=== PATIENT | male | born 1995 | race Caucasian/White ===

== ENCOUNTER 2020-12-16 20:39 | Emergency (ER) | payer OTHER, SELFPAY ==
--- NOTE | 2020-12-16 | ECG_ITS ---
Test Reason : CHEST PAIN Blood Pressure : / mmHG Vent. Rate : 100 BPM Atrial Rate : 100 BPM P-R Int : 138 ms QRS Dur : 092 ms QT Int : 322 ms P-R-T Axes : 058 076 058 degrees QTc Int : 415 ms Normal sinus rhythm Normal ECG No previous ECGs available Referred By: Generic ED Physician Electronically Signed By:Jun Harper
--- NOTE | ~2020-12-16 | XR_ITS ---
EXAMINATION: XR CHEST CLINICAL INFORMATION: Productive cough COMPARISON: None TECHNIQUE: Frontal portable view of the chest was obtained. 9:20 PM FINDINGS: No significant abnormality is noted involving the heart, lungs, mediastinum, bony thorax or soft tissues. XR/XR chest 1V IMPRESSION: Unremarkable examination.
[2020-12-16 21:05] VITALS: BP 140/79; PULSE 98; RESP 20; TEMP 38.9; O2SAT 99; BMI 25.1
[2020-12-16] MEDS: Acetaminophen 325 MG TABLET 650 MG PO (21:20)
[2020-12-16 21:28] LABS: Basophils Percent Auto 0.3 % (0-2); Eosinophils Percent Auto 0.3 % (0-4); Hematocrit 41.3 % (42-52); Hemoglobin 14.4 g/dl (14.0-18.0); Imm Gran Abs Auto 0.03 X10*3/uL (0.00-0.03); Imm Gran Pct Auto 0.3 % (0.0-0.4); Lymphocytes Absolute Auto 0.8 X10*3/uL (1.2-4.9); Lymphocytes Percent Auto 6.9 % (20-40); MANUAL DIFF FLAG NO; Mean Corpuscular HGB Conc 34.9 g/dl (31.0-36.0); Mean Corpuscular Hemoglobin 31.6 pg (27.0-33.0); Mean Corpuscular Volume 90.8 fL (80-98); Mean Platelet Volume 9.3 fL (9.4-12.4); Monocytes Absolute Auto 0.8 X10*3/uL (0.1-1.2); Neutrophils Absolute Auto 9.2 X10*3/uL (2.0-8.3); Neutrophils Percent Auto 85.2 % (45-73); Platelet Count 207 X10*3/uL (160-400); Red Blood Count 4.55 X10*6/uL (4.60-5.80); Red Cell Distribution Width 11.5 % (11.0-16.0); White Blood Count 10.8 X10*3/uL (4.8-10.8)
[2020-12-16 21:37] LABS: COVID-19 Test Negative (Negative)
[2020-12-16 21:41] LABS: Lactic Acid 1.9 mmol/L (0.5-2.0)
--- NOTE | 2020-12-16 21:41 | ED.URI ---
HPI - URI/Sore Throat General Chief Complaint: Upper Respiratory Symptoms Stated Complaint: Chest pain/SOB Time Seen by Provider: 12/16/20 21:41 Source: patient Mode of arrival: ambulatory History of Present Illness HPI Narrative: 25-year-old male without significant past medical history presents with 2 days of productive cough of greenish phlegm that has worsened and now is associated chest pain that worsens with deep inspiration and coughing so hard that he has puked, states he has had some mild diarrhea but denies any urinary symptoms. 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 PMFSH Past Medical History Source: nursing notes reviewed Medical History Asthma Social History Social History Advance Directives: No Advance Directives Information Provided: Yes Physical Exam Vital Signs: Vital Signs: Last Vital Signs Temp 100.6 F H 12/16/20 22:37 Pulse 90 12/16/20 22:37 Resp 18 12/16/20 22:37 BP 133/58 L 12/16/20 22:37 Pulse Ox 97 12/16/20 22:37 Body Mass Index 25.1 VITAL SIGNS: Reviewed. GENERAL: Well developed, well nourished, in no acute distress. HEAD: Normocephalic/atraumatic EYES: PERRLA, EOMI, no conjunctival injection EARS: Ext canals without abnormality, TMs non-bulging and non-erythematous NOSE: Nares patent bilateral OROPHARYNX: no oral lesions noted, posterior pharynx erythematous with noted tonsillar enlargement/erythema NECK: Supple, no adenopathy LUNGS: Scattered rhonchi bilaterally, no expiratory wheeze noted, no tachypnea or increased work of breathing. SpO2<99> CARDIOVASCULAR: Regular rate and rhythm without noted murmurs ABDOMEN: Soft, non-tender, non-distended with bowel sounds. SKIN: Inspection of the skin reveals no rashes NEUROLOGIC: Alert and oriented x 4. Strength and sensation to light touch were grossly intact x 4. Course Course Course Narrative: 25-year-old male with history and clinical presentation consistent with likely pneumonia, possible strep pharyngitis, less likely COVID. Low clinical suspicion for PE or cardiac etiologies. Review of all investigations negative for acute findings, however clinically presentation is consistent with pneumonia and patient will be treated with initial antibiotics here in the emergency room and discharged on remaining course. Patient was informed of all results and findings and instructed to follow-up with primary care provider in the next 2-3 days for re-evaluation. MDM - URI/Sore Throat Lab Data Result diagrams: 12/16/20 21:20 12/16/20 21:20 Labs: Lab Results 12/16/20 12/16/20 12/16/20 Range/Units 20:50 21:19 21:20 WBC 10.8 (4.8-10.8) X10*3/uL RBC 4.55 L (4.60-5.80) X10*6/uL Hgb 14.4 (14.0-18.0) g/dl Hct 41.3 L (42-52) % MCV 90.8 (80-98) fL MCH 31.6 (27.0-33.0) pg MCHC 34.9 (31.0-36.0) g/dl RDW 11.5 (11.0-16.0) % Plt Count 207 (160-400) X10*3/uL MPV 9.3 L (9.4-12.4) fL Immature Gran % (Auto) 0.3 (0.0-0.4) % Neut % (Auto) 85.2 H (45-73) % Lymph % (Auto) 6.9 L (20-40) % [place] % (Auto) 7.0 (2-11) % Eos % (Auto) 0.3 (0-4) % Baso % (Auto) 0.3 (0-2) % Lymph # (Auto) 0.8 L (1.2-4.9) X10*3/uL [place] # (Auto) 0.8 (0.1-1.2) X10*3/uL Eos # (Auto) 0.0 (0.0-0.4) X10*3/uL Baso # (Auto) 0.0 (0.0-0.2) X10*3/uL Abs Immat Gran (auto) 0.03 (0.00-0.03) X10*3/uL Absolute Neuts (auto) 9.2 H (2.0-8.3) X10*3/uL Absolute Nucleated RBC 0.000 (0.0-0.012) X10*3/uL Nucleated RBC % (auto) 0.0 (0.0-0.2) /100WBC Sodium (135-145) mmol/L Potassium (3.3-5.1) mmol/L Chloride (96-108) mmol/L Carbon Dioxide (22-29) mmol/L Anion Gap (12-20) BUN (9-16) mg/dL Creatinine (0.5-1.4) mg/dL Estim Creat Clear Calc Estimated GFR Random Glucose (60-115) mg/dL Lactic Acid 1.9 (0.5-2.0) mmol/L Calcium (8.4-10.2) mg/dL COVID-19 (DELVIS) Negative (Negative) COVID-19 Clin Com See Note S. pyogenes GrpA ZAK (Negative) 12/16/20 12/16/20 Range/Units 21:20 22:19 WBC (4.8-10.8) X10*3/uL RBC (4.60-5.80) X10*6/uL Hgb (14.0-18.0) g/dl Hct (42-52) % MCV (80-98) fL MCH (27.0-33.0) pg MCHC (31.0-36.0) g/dl RDW (11.0-16.0) % Plt Count (160-400) X10*3/uL MPV (9.4-12.4) fL Immature Gran % (Auto) (0.0-0.4) % Neut % (Auto) (45-73) % Lymph % (Auto) (20-40) % [place] % (Auto) (2-11) % Eos % (Auto) (0-4) % Baso % (Auto) (0-2) % Lymph # (Auto) (1.2-4.9) X10*3/uL [place] # (Auto) (0.1-1.2) X10*3/uL Eos # (Auto) (0.0-0.4) X10*3/uL Baso # (Auto) (0.0-0.2) X10*3/uL Abs Immat Gran (auto) (0.00-0.03) X10*3/uL Absolute Neuts (auto) (2.0-8.3) X10*3/uL Absolute Nucleated RBC (0.0-0.012) X10*3/uL Nucleated RBC % (auto) (0.0-0.2) /100WBC Sodium 139 (135-145) mmol/L Potassium 3.6 (3.3-5.1) mmol/L Chloride 106 (96-108) mmol/L Carbon Dioxide 20 L (22-29) mmol/L Anion Gap 17 (12-20) BUN 9 (9-16) mg/dL Creatinine 1.21 (0.5-1.4) mg/dL Estim Creat Clear Calc 99.3 Estimated GFR > 60 Random Glucose 103 (60-115) mg/dL Lactic Acid (0.5-2.0) mmol/L Calcium 10.0 (8.4-10.2) mg/dL COVID-19 (DELVIS) (Negative) COVID-19 Clin Com S. pyogenes GrpA ZAK Negative (Negative) Discharge Plan Discharge Clinical Impression: Pneumonia Patient Disposition: Home, Self-Care Instructions: Pneumonia (ED), Doxycycline (By mouth) Additional Instructions: 1. Tylenol 1000 mg, orally, every 6 hours as needed for temperatures greater than 100.4 as well as body aches and pains. Do not exceed 4000 mg within 24 hours. 2. Ibuprofen 400 mg, orally, every 6 hours as needed for temperatures greater than 100.4 as well as body aches and pains. Recommend taking this in combination with the Tylenol for added symptom relief. 3. Please follow-up with your primary care provider next 2-3 days for re-evaluation and further outpatient management. Return to the ER for acute worsening of symptoms. Prescriptions: New doxycycline hyclate 100 mg capsule 100 mg PO BID 5 Days Qty: 10 RF: 0 Referrals: Geoff Whitaker MD [Primary Care Provider] - 2 days
[2020-12-16 22:00] LABS: Anion Gap 17 (12-20); Blood Urea Nitrogen 9 mg/dL (9-16); Carbon Dioxide 20 mmol/L (22-29); Chloride 106 mmol/L (96-108); Creatinine Clr Calc Pharmacy 99.3; Estimated Glomerular Filt Rate > 60; Glucose Random 103 mg/dL (60-115); Potassium 3.6 mmol/L (3.3-5.1); Sodium 139 mmol/L (135-145)
[2020-12-16 22:32] LABS: IDNOW Serial# 9DD0AD1C; Strep A Nucleic Acid Negative (Negative)
[2020-12-16 22:37] VITALS: BP 133/58; PULSE 90; RESP 18; TEMP 38.1; O2SAT 97
== END 2020-12-17 00:05 | disposition home or self-care (01) ==
PROVIDERS: Emergency Provider Student in an Organized Health Care Education/Training Program; PCP Internal Medicine
DX: J18.9 Pneumonia, unspecified organism (principal); J45.909 Unspecified asthma, uncomplicated; Z20.822 Contact with and (suspected) exposure to COVID-19
CPT/HCPCS: 36415; 71045; 80048; 83605; 85025; 87040; 87635; 87651; 93005; 99284

== ENCOUNTER 2022-10-21 23:13 | Emergency (ER) | payer OTHER, SELFPAY ==
--- NOTE | ~2022-10-21 | XR_ITS ---
EXAMINATION: XR CHEST CLINICAL INFORMATION: Hemoptysis COMPARISON: 12/16/2020 TECHNIQUE: 2 views of the chest were obtained. FINDINGS: Normal symmetric lung volumes. No parenchymal consolidation. No pleural effusion. No pneumothorax. Cardiomediastinal silhouette and pulmonary vascularity are within normal limits. No acute osseous abnormalities. XR/XR chest 2V IMPRESSION: Clear lungs
[2022-10-21 23:17] VITALS: BP 143/83; PULSE 105; RESP 19; TEMP 36.9; O2SAT 96; BMI 22.3
--- NOTE | 2022-10-22 00:20 | ED_ITS ---
HPI - General Adult General Chief complaint: General Medical Stated complaint: coughing up blood, fever Time Seen by Provider: 10/22/22 00:20 Source: patient Mode of arrival: ambulatory Limitations: no limitations History of Present Illness HPI narrative: Patient with history of asthma complaining of cough for last few days since yesterday coughing of blood phlegm with blood tinged. Also feel nasal congestion and blocked nose and sore throat with neck pain. Subjective fever patient's girlfriend also sick with same Related Data Previous Rx's Medication Instructions Recorded doxycycline hyclate 100 mg capsule 100 mg PO BID 5 days #10 caps 12/16/20 amoxicillin 875 mg-potassium 1 tab PO BID #20 tabs 10/22/22 clavulanate 125 mg tablet benzonatate 200 mg capsule 200 mg PO TID PRN cough #20 caps 10/22/22 ibuprofen 600 mg tablet 600 mg PO Q6H PRN fever or pain 10/22/22 #30 tabs Allergies Allergy/AdvReac Type Severity Reaction Status Date / Time procaine [From Novocain] AdvReac Numbness Verified 12/16/20 21:08 Review of Systems Review of Systems: Yes all other systems are reviewed and are negative PMFSH Past Medical History Medical History Asthma Social History Social History Alcohol intake: current Alcohol intake frequency: a few times a week Alcohol type: beer Smoked in Last 30 Days: No Use of substances other than those prescribed or required for medical reasons: Yes Substance Use Type: Marijuana Substance Use Frequency: Occasionally Advance Directives: No Advance Directives Information Provided: No Physical Exam ED Vital Signs: Vital Signs - 24 hr 10/21/22 23:17 10/22/22 00:27 10/22/22 02:18 Temperature 98.5 F 99.5 F 99.0 F Pulse Rate 105 H 86 89 Respiratory Rate 19 16 18 Blood Pressure 143/83 H 126/60 120/73 Pulse Oximetry 96 98 97 Oxygen Delivery Method Room Air Room Air Room Air BMI result Body Mass Index 22.3 Appearance: Alert. Oriented X3. No acute distress. ENT: Pharynx slightly erythematous Oral Mucosa moist Neck: Normal inspection. Neck supple. Upper cervical lymph node+ CVS: Normal heart rate and rhythm. Pulses normal. Respiratory: No respiratory distress. Equal air entry bilateral, no wheezing/rales/rhonchi Abdomen: Soft and nontender. Bowel sounds are present, Skin: Skin warm and dry. Normal skin color. Normal skin turgor. Neuro: Oriented X 3. No motor deficit. Medications Administered Discontinued Medications Generic Name Dose Route Start Last Admin Trade Name Freq PRN Reason Stop Dose Admin Amoxicillin/Clavulanate Potassium 875 mg 10/22/22 00:27 10/22/22 01:06 Amoxicillin/Potassium Clav 875 Mg Tablet PO 10/22/22 00:28 875 mg ONCE ONE Administration Benzonatate 200 mg 10/22/22 00:28 10/22/22 01:06 Benzonatate 100 Mg Capsule PO 10/22/22 00:29 200 mg ONCE ONE Administration Medical Decision Making Lab Data [facility] Lab Attestation statement: I reviewed the patient's lab results. 10/22/22 00:36 10/22/22 00:36 Labs: Lab Results 10/22/22 10/22/22 10/22/22 Range/Units 00:36 00:36 00:36 WBC 16.6 H (4.8-10.8) X10*3/uL RBC 4.44 L (4.60-5.80) X10*6/uL Hgb 14.1 (14.0-18.0) g/dl Hct 40.5 L (42.0-52.0) % MCV 91.2 (80.0-98.0) fL MCH 31.8 (27.0-33.0) pg MCHC 34.8 (31.0-36.0) g/dl RDW 11.8 (11.0-16.0) % Plt Count 236 (160-400) X10*3/uL MPV 9.1 L (9.4-12.4) fL Immature Gran % (Auto) 0.4 (0.0-0.4) % Neut % (Auto) 80.0 H (45-73) % Lymph % (Auto) 11.5 L (20-40) % [place] % (Auto) 7.8 (2-11) % Eos % (Auto) 0.1 (0-4) % Baso % (Auto) 0.2 (0-2) % Lymph # (Auto) 1.9 (1.2-4.9) X10*3/uL [place] # (Auto) 1.3 H (0.1-1.2) X10*3/uL Eos # (Auto) 0.0 (0.0-0.4) X10*3/uL Baso # (Auto) 0.0 (0.0-0.2) X10*3/uL Abs Immat Gran (auto) 0.06 H (0.00-0.03) X10*3/uL Absolute Neuts (auto) 13.3 H (2.0-8.3) x10*3/uL Absolute Nucleated RBC 0.000 (0.0-0.012) X10*3/uL Nucleated RBC % (auto) 0.0 (0.0-0.2) /100WBC Sodium 140 (135-145) mmol/L Potassium 3.7 (3.3-5.1) mmol/L Chloride 104 (96-108) mmol/L Carbon Dioxide 23 (22-29) mmol/L Anion Gap 17 (12-20) BUN 14 (9-16) mg/dL Creatinine 1.11 (0.5-1.4) mg/dL Estim Creat Clear Calc 102.6 Estimated GFR > 60 Random Glucose 100 (60-115) mg/dL Calcium 9.9 (8.4-10.2) mg/dL Total Bilirubin 0.4 (0.0-1.0) mg/dL AST 18 (5-37) U/L ALT 14 (0-40) U/L Alkaline Phosphatase 90 (39-117) U/L Total Protein 7.6 (6.5-8.0) g/dL Albumin 4.9 (3.5-5.0) g/dL S. pyogenes GrpA ZAK Negative (Negative) Discharge Plan Discharge Clinical Impression: Acute bacterial pharyngitis Patient Disposition: Home, Self-Care Instructions: Pharyngitis (ED) Additional Instructions: Take antibiotic as prescribed Drink plenty of fluids Tylenol/Motrin for pain Prescriptions: New benzonatate 200 mg capsule 200 mg PO TID PRN (Reason: cough) Qty: 20 0RF amoxicillin-pot clavulanate 875-125 mg tablet 1 tab PO BID Qty: 20 0RF ibuprofen 600 mg tablet 600 mg PO Q6H PRN (Reason: fever or pain) Qty: 30 0RF No Action doxycycline hyclate 100 mg capsule 100 mg PO BID 5 Days Qty: 10 0RF Interventions: ED Discharge Assessment Last Done: 10/22/22 02:19 Discharge Date/Time: 10/22/22 02:20
[2022-10-22 00:27] VITALS: BP 126/60; PULSE 86; RESP 16; TEMP 37.5; O2SAT 98
[2022-10-22 00:43] LABS: MANUAL DIFF FLAG NO
[2022-10-22 00:44] LABS: Basophils Percent Auto 0.2 % (0-2); Eosinophils Percent Auto 0.1 % (0-4); Hematocrit 40.5 % (42.0-52.0); Hemoglobin 14.1 g/dl (14.0-18.0); Imm Gran Abs Auto 0.06 X10*3/uL (0.00-0.03); Imm Gran Pct Auto 0.4 % (0.0-0.4); Lymphocytes Absolute Auto 1.9 X10*3/uL (1.2-4.9); Lymphocytes Percent Auto 11.5 % (20-40); Mean Corpuscular HGB Conc 34.8 g/dl (31.0-36.0); Mean Corpuscular Hemoglobin 31.8 pg (27.0-33.0); Mean Corpuscular Volume 91.2 fL (80.0-98.0); Mean Platelet Volume 9.1 fL (9.4-12.4); Monocytes Absolute Auto 1.3 X10*3/uL (0.1-1.2); Monocytes Percent Auto 7.8 % (2-11); Neutrophils Absolute Auto 13.3 x10*3/uL (2.0-8.3); Platelet Count 236 X10*3/uL (160-400); Red Blood Count 4.44 X10*6/uL (4.60-5.80); Red Cell Distribution Width 11.8 % (11.0-16.0); White Blood Count 16.6 X10*3/uL (4.8-10.8)
[2022-10-22 00:49] LABS: IDNOW Serial# 6674DD1D; Strep A Nucleic Acid Negative (Negative)
[2022-10-22 01:02] LABS: Alanine Aminotransferase 14 U/L (0-40); Albumin Level 4.9 g/dL (3.5-5.0); Alkaline Phosphatase 90 U/L (39-117); Anion Gap 17 (12-20); Aspartate Amino Transferase 18 U/L (5-37); Bilirubin Total 0.4 mg/dL (0.0-1.0); Blood Urea Nitrogen 14 mg/dL (9-16); Calcium 9.9 mg/dL (8.4-10.2); Carbon Dioxide 23 mmol/L (22-29); Chloride 104 mmol/L (96-108); Creatinine Clr Calc Pharmacy 102.6; Estimated Glomerular Filt Rate > 60; Glucose Random 100 mg/dL (60-115); Potassium 3.7 mmol/L (3.3-5.1); Sodium 140 mmol/L (135-145); Total Protein 7.6 g/dL (6.5-8.0)
[2022-10-22] MEDS: Amoxicillin/Potassium Clav 875 MG TABLET PO (01:06)
[2022-10-22] MEDS: Benzonatate 100 MG CAPSULE 200 MG PO (01:06)
[2022-10-22 02:18] VITALS: BP 120/73; PULSE 89; RESP 18; TEMP 37.2; O2SAT 97
== END 2022-10-22 02:20 | disposition home or self-care (01) ==
PROVIDERS: Emergency Provider Internal Medicine
DX: J02.9 Acute pharyngitis, unspecified (principal); R05.9 Cough, unspecified; Z79.899 Other long term (current) drug therapy
CPT/HCPCS: 36415; 71046; 80053; 85025; 87651; 99284

== ENCOUNTER 2023-01-18 07:53 | Outpatient (AMB) | payer OTHER, SELFPAY ==
--- NOTE | 2023-01-18 08:03 | A.OFFPC_ITS ---
Vital Signs 01/18/23 08:04 Height 5 ft 11 in Weight 192 lb BMI 26.8 BP 110/62 Blood Pressure Location Lt brachial Position Sitting Pulse 56 Pulse Source Pulse Oximeter Pulse Oximetry (%) 98 Oxygen Delivery Method Room Air Intake Visit Reasons: NPV-Discuss medical issues Allergies procaine [From Novocain] Adverse Reaction (Verified 01/18/23 08:11) Numbness Medication List - Last Reconciled 01/18/23 by Arturo Smith PA-C ibuprofen 600 mg PO Q6H PRN Tobacco use date assessed: 01/18/23 Dental Screening Dental Screen Date: 01/18/23 Did you have a dental visit in the last 12 months?: No Did you have a dental problem in the last 6 months where you did not have access to dental care?: No Was dental information given to patient?: Patient has dentist HPI NPV-Discuss medical issues HPI Details Patient is a 27-year-old male here today as a new patient . Pmhx of asthma. JAMIE, MDD. Has been treated for his mental health in the past though has never felt quite right on mental health medications except for hydroxyzine which has worked for his panic attacks. Concerns--> REports having having chest discomfort on a random occasion also report having bilateral ear itch when he has high anxiety. He denies any history of eczema Vaccines: reports being up to date with Tdap . [facility] Medical History Asthma Family History (Updated 01/18/23 @ 08:15 by Arturo Smith PA-C) Father CAD (coronary artery disease) Social History (Updated 01/18/23 @ 08:16 by Arturo Smith PA-C) Alcohol intake: current Alcohol intake frequency: a few times a week Alcohol type: beer Patient Tobacco Use Status: Never used Tobacco Substance Use Type: Marijuana Current occupational status: employed Current occupation: senior living associate Questionnaire PHQ-9 Over the last 2 weeks, how often have you been bothered by any of the following problems? 1. Little interest or pleasure in doing things: several days 2. Feeling down, depressed, or hopeless: more than half the days 3. Trouble falling or staying asleep, or sleeping too much: nearly every day 4. Feeling tired or having little energy: nearly every day 5. Poor appetite or overeating: several days 6. Feeling bad about yourself - or that you are a failure or have let yourself or your family down: more than half the days 7. Trouble concentrating on things, such as reading the newspaper or watching television: nearly every day 8. Moving or speaking so slowly that other people could have noticed. Or the opposite - being so fidgety or restless that you have been moving around a lot more than usual: nearly every day 9. Thoughts that you would be better off or of hurting yourself in some way: not at all Total score: 18 Depression Screening Interpretation: Positive 61608 - PHQ-9 Billing: Yes Source: Developed by Drs. Jarret Lorenzo, Ebony Steen, Joss Smith and colleagues, with an educational divina from [employer]. Thrive Questionnaire Date Thrive assessed: 01/18/23 I am a: Patient What is your living situation today?: I have a steady place to live Within the past 12 months, did the food you bought not last and you didn't have the money to get more?: Never true Within the past 12 months, did you worry whether your food would run out before you got money to buy more?: Never true Do you have trouble paying for medicines?: No Do you have trouble getting transportation to medical appointments?: No Do you have trouble paying your heating and electricity bill?: No Do you have trouble taking care of your child, family member or friend?: No Do you have trouble with day-to-day activities such as bathing, preparing meals, shopping, managing finances, etc.?: No Are you currently unemployed and looking for a job?: No Are you interested in more education?: No Currently or been in a relationship where the following occur: no concerns reported AUDIT C Alcohol Use Questionnaire (AUDIT-C) 1. How often do you have a drink containing alcohol?: 2-3 times a week 2. How many drinks containing alcohol do you have on a typical day when you are drinking?: 3 or 4 3. How often do you have six or more drinks on one occasion?: Less than monthly Total Score: 5 JAMIE-7 AMB Questionnaire JAMIE-7 Date JAMIE - 7 assessed: 01/18/23 Feeling nervous, anxious, or on edge: 3 = Nearly every day Not being able to stop or control worryin = Nearly every day Worrying too much about different things: 3 = Nearly every day Trouble relaxin = Nearly every day Being so restless that it is hard to sit still: 3 = Nearly every day Becoming easily annoyed or irritable: 1 = Several days Feeling afraid as if something awful might happen: 3 = Nearly every day Total JAMIE-7 score (0-4 normal; 5-9 mild; 10-14 moderate; 15-21 severe): 19 Source: Developed by Drs. Jarret Lorenzo, Ebony Steen, Joss Smith and colleagues, with an educational divina from [employer]. JAMIE-7 Assessment Billing JAMIE-7 Assessment Tool: JAMIE-7 Assessment 83571 Review of Systems Const Denies headache(s) Eyes Denies loss of vision ENT Denies vertigo, Denies dizziness, Denies headache(s) and Denies sore throat Card Denies chest pain, Denies leg edema and Denies lightheadedness Resp Denies cough, Denies hemoptysis and Denies wheezing GI Denies abdominal pain, Denies melena, Denies constipation, Denies diarrhea and Denies vomiting Denies dysuria, Denies urinary frequency and Denies urinary urgency Musc Denies arthralgias, Denies joint swelling, Denies numbness and Denies tingling Neuro Denies Abnormal speech present, Denies behavioral changes, Denies vertigo, Denies dizziness, Denies headache(s), Denies loss of vision, Denies memory loss, Denies numbness and Denies tingling Psych Denies anxiety, Denies behavioral changes, Denies depression, Denies memory loss and Denies panic attacks Azeem/Lymph Denies easy bleeding and Denies easy bruising Aller/Immun Denies wheezing Physical exam (Primary Care) Vital Signs: Last Vital Signs Pulse 56 01/18/23 08:04 BP 110/62 01/18/23 08:04 Pulse Ox 98 01/18/23 08:04 Oxygen Delivery Method Room Air 01/18/23 08:04 BMI result Body Mass Index 26.8 Tobacco/Smoking Status: Tobacco use Status Tobacco use date assessed 01/18/23 01/18/23 08:09 Patient Tobacco Use Status Never used Tobacco 08/17/23 08:16 PHQ-9: PHQ-9 Score PHQ-9: Total score 18 01/18/23 08:23 Depression Screening Interpretation: Positive Thrive Assessment: Date of Thrive Assessment Date Thrive assessed 01/18/23 01/18/23 08:09 Currently or been in a relationship where the following occur: no concerns reported Const General: healthy appearing, no acute distress, alert and awake Nutritional Appearance: well nourished Orientation/consciousness: oriented to person, oriented to place and oriented to time HENMT Ears: TM's normal bilaterally General nose exam: Normal nasal mucous membranes and turbinates present Eyes Conjunctivae: conjunctivae normal Sclerae: sclerae normal Pupils: Equal, round and reactive pupils present Neck Neck: Yes no lymphadenopathy and Yes no JVD Thyroid: Thyroid normal Carotids: no bruits Resp Effort & Inspection: normal respiratory effort and not tachypneic Auscultation: no crackles, no rales, no rhonchi and no wheezes Cardio Rate: regular rate Rhythm: regular rhythm Heart sounds: no murmurs and normal S1 and S2 GI Palpation (GI): Soft to palpation, nontender, no hepatomegaly and no splenomeg niru Auscultation: normal bowel sounds Skin General skin exam: no rashes or lesions noted and dry skin Neuro General: oriented to person, oriented to place and oriented to time Cranial nerves: Yes Equal, round and reactive pupils present Speech: No Abnormal speech present Gait exam (Neuro): Normal gait present Motor exam (neuro): no tremor noted Extrem Right upper extremity: full ROM Left upper extremity: full ROM Right lower extremity: full ROM; no edema Left lower extremity: full ROM; no edema Psych Mental Status: mental status grossly normal Speech and movement: Normal speech and movement present Affect: normal affect Attitude: cooperative Thought process: Normal thought process present Assessment and Plan Assessment & Plan (1) JAMIE (generalized anxiety disorder): Code(s): F41.1 - Generalized anxiety disorder Plan: Patient's JAMIE-7 score positive for moderate anxiety which has been existing condition for him. He reports he is on hydroxyzine 25 mg p.r.n. in the past with good effect on reducing his anxiety. he is interested in starting cognitive behavior therapy as well. (2) MDD (major depressive disorder), recurrent episode, moderate: Code(s): F33.1 - Major depressive disorder, recurrent, moderate Plan: Patient's PHQ-9 positive for moderate depression which has been existing condition for him. He is willing to start up with mental health therapy. Considering restarting SSRI therapy though like to hold off on this time. Does use hydroxyzine 25 mg p.r.n. for panic attack which has been effective for him. (3) Screening for diabetes mellitus (DM): Code(s): Z13.1 - Encounter for screening for diabetes mellitus (4) Ear itching: Code(s): L29.9 - Pruritus, unspecified Plan: Will supply patient with Sittig acid ear drops to help with his ear itch. Orders: Orders [facility] [place]. Panel Fast Today Z13.1 - Encounter for screening for diabetes mellitus Referrals Counseling Referral F41.1 - Generalized anxiety disorder Medications: New hydroxyzine HCl 25 mg PO ONCE 15 days PRN 15 tabs 3RF Panic attacks F41.1 - Generalized anxiety disorder acetic acid 2% apply to (cotton) wick; 3 drps otic (ear) left QID 30 days PRN 15 mL 0RF ear itch L29.9 - Pruritus, unspecified Coding Level of Care Code New Pt Level 4 (22627) Diagnoses JAMIE (generalized anxiety disorder) F41.1 MDD (major depressive disorder), recurrent episode, moderate F33.1 Screening for diabetes mellitus (DM) Z13.1 Ear itching L29.9 Additional Codes JAMIE-7 Assessment Billing - JAMIE-7 Assessment Tool: JAMIE-7 Assessment [id number] ([id number])
[2023-01-18 08:04] VITALS: BP 110/62; PULSE 56; O2SAT 98; BMI 26.8
== END 2023-01-18 08:33 | disposition home or self-care (01) ==
PROVIDERS: Visit Provider Physician Assistant
DX: F41.1 Generalized anxiety disorder (principal); F33.1 Major depressive disorder, recurrent, moderate; Z13.1 Encounter for screening for diabetes mellitus; L29.9 Pruritus, unspecified
CPT/HCPCS: 96127; 99204

== ENCOUNTER 2023-05-22 07:29 | Outpatient (REF) | payer OTHER, SELFPAY ==
[2023-05-22 09:05] LABS: Alanine Aminotransferase 14 U/L (0-40); Albumin Level 4.4 g/dL (3.5-5.0); Alkaline Phosphatase 75 U/L (39-117); Anion Gap 16 (12-20); Aspartate Amino Transferase 16 U/L (5-37); Bilirubin Total 0.2 mg/dL (0.0-1.0); Blood Urea Nitrogen 10 mg/dL (9-16); Carbon Dioxide 23 mmol/L (22-29); Chloride 108 mmol/L (96-108); Estimated Glomerular Filt Rate > 60; Glucose Fasting 86 mg/dL (60-99); Potassium 3.5 mmol/L (3.3-5.1); Sodium 143 mmol/L (135-145)
== END 2023-05-22 07:30 | disposition home or self-care (01) ==
LOC: HO.LAB 07:29
PROVIDERS: PCP Internal Medicine; Visit Provider Physician Assistant
DX: Z13.1 Encounter for screening for diabetes mellitus (principal)
CPT/HCPCS: 36415; 80053

== ENCOUNTER 2023-05-22 08:55 | Outpatient (AMB) | payer OTHER, SELFPAY ==
[2023-05-22 09:16] VITALS: BP 112/62; PULSE 68; RESP 17; BMI 27.7
--- NOTE | 2023-05-22 09:16 | A.OFFPC_ITS ---
Vital Signs 05/22/23 09:16 Height 5 ft 11 in Weight 198 lb 8 oz BMI 27.7 BP 112/62 Blood Pressure Location Lt brachial Position Sitting Respiration 17 Pulse 68 Pulse Source Palpation Intake Visit Reasons: Annual Exam Intake Note: Patient is here today for a physical. Systems Integration Advisor Required: No Accompanied by: Self / Same As Patient Allergies procaine [From Novocain] Adverse Reaction (Verified 05/22/23 09:31) Numbness Medication List - Last Reconciled 05/22/23 by Arturo Smith PA-C albuterol sulfate 90 mcg/actuation (Ventolin HFA) 2 puffs inhalation Q4-6H PRN hydroxyzine HCl 25 mg PO ONCE PRN 15 days Tobacco use date assessed: 01/18/23 Dental Screening Dental Screen Date: 05/22/23 Did you have a dental visit in the last 12 months?: No Did you have a dental problem in the last 6 months where you did not have access to dental care?: No Was dental information given to patient?: Patient has dentist HPI Annual Exam HPI Details Patient is a 27 year male here today for annual physical. Patient has a past medical history significant for generalized anxiety disorder and major depressive disorder, asthma. concerns--->having lower back pain for many years now. Does report his back pain gets worse with long periods of standing. He is interested in getting his lower lumbar spine evaluated. .. : Anxiety: Has been fairly well controlled with p.r.n. use of hydroxyzine for panic attacks. .. Asthma: Has been well controlled with only p.r.n. use of albuterol inhaler. Does report recently have a viral illness that bothers his asthma a bit. Does use albuterol inhaler which works well for him. Vaccines: Up-to-date with flu vaccine, COVID vaccines, Had Tdap in 2017 Recent Labs reviewed patient in all within the normal range Laboratory Tests 10/22/22 00:36 WBC 16.6 H RBC 4.44 L [facility] Medical History Asthma Family History Father CAD (coronary artery disease) Social History (Updated 05/22/23 @ 09:36 by Arturo Smith PA-C) Housing: Condominium Alcohol intake: current Alcohol intake frequency: a few times a week Alcohol type: beer Patient Tobacco Use Status: Never used Tobacco e-Cigarette/Vaping Use: Former Use Date or number of years quit: 4 year ago Substance Use Type: Marijuana service: No Current occupational status: employed Current occupation: [employer] associate Cognitive needs: No Hearing needs: No Vision needs: No Questionnaire Thrive Questionnaire Date Thrive assessed: 01/18/23 JAMIE-7 AMB Questionnaire JAMIE-7 Date JAMIE - 7 assessed: 01/18/23 Source: Developed by Drs. Jarret Lorenzo, Ebony Steen, Joss Smith and colleagues, with an educational divina from [employer]. ACT Questionnaire In the past 4 weeks, how much of the time did your asthma keep you from getting as much done at work, school or at home?: None of the time During the past 4 weeks, how often have you had shortness of breath?: 1-2 times a week During the past 4 weeks, how often did your asthma symptoms wake you up at night or earlier than usual in the morning?: Once or twice per week During the past 4 weeks, how often have you had to use your rescue inhaler or nebulizer medication?: Not at all How would you rate your asthma control during the past 4 weeks?: Completely controlled ACT Interpretation: Negative Score: 23 Review of Systems Const Denies body aches, Denies chills, Denies excessive sweating, Denies fatigue, Denies fever(s) and Denies headache(s) Eyes Denies blurry vision ENT Denies dysphagia, Denies vertigo, Denies dizziness, Denies headache(s), Denies hearing loss and Denies tinnitus Card Denies chest pain, Denies chest pain with activity, Denies syncope, Denies irregular heart rhythm and Denies dyspnea Resp Denies chest congestion, Denies cough, Denies hemoptysis, Denies dyspnea and Denies wheezing GI Denies abdominal pain, Denies melena, Denies hematochezia, Denies coffee ground emesis, Denies dysphagia, Denies diarrhea, Denies nausea and Denies vomiting Denies difficulty urinating, Denies dysuria, Denies urinary frequency, Denies urinary hesitancy and Denies urinary urgency Musc Denies arthralgias, Denies limited range of motion, Denies muscle cramps and Denies muscle weakness Skin/Breast Denies rash and Denies skin ulcer Neuro Denies Abnormal speech present, Denies confusion, Denies vertigo, Denies dizziness, Denies syncope, Denies headache(s), Denies memory loss and Denies seizure-like activity Psych Denies anxiety, Denies confusion, Denies depression, Denies memory loss, Denies panic attacks and Denies paranoia Endo Denies excessive sweating, Denies fatigue, Denies flushing, Denies polydipsia and Denies polyuria Aller/Immun Denies wheezing Physical exam (Primary Care) Vital Signs: Last Vital Signs Pulse 68 05/22/23 09:16 Resp 17 05/22/23 09:16 BP 112/62 05/22/23 09:16 BMI result Body Mass Index 27.7 Tobacco/Smoking Status: Tobacco use Status Tobacco use date assessed 01/18/23 05/22/23 09:17 Patient Tobacco Use Status Never used Tobacco 05/22/23 09:17 e-Cigarette/Vaping Use Former Use 05/22/23 09:28 Thrive Assessment: Date of Thrive Assessment Date Thrive assessed 01/18/23 05/22/23 09:17 Const General: cooperative, comfortable, no acute distress, alert and awake; No confus ion Orientation/consciousness: oriented to person, oriented to place, patient oriented x3 and No confusion HENMT Head: Yes normocephalic Ears: external ears normal and TM's normal bilaterally Face and sinus: No sinus tenderness Mouth: Normal oral and palatal mucosa present and tongue normal Teeth and gingiva: dentition normal and gingiva normal Throat: Yes posterior oropharynx normal, Yes tonsils normal and Yes uvula midline Eyes Conjunctivae: conjunctivae normal Sclerae: sclerae normal Pupils: Equal, round and reactive pupils present EOM: EOMs intact bilaterally Direct Ophthalmoscopy: No no photophobia Neck Neck: Yes no lymphadenopathy, No tender and Yes no JVD Thyroid: Thyroid normal Carotids: no bruits Chest Chest palpation & inspection: no tenderness Resp Effort & Inspection: normal respiratory effort, no audible wheezes, not labored and no stridor Auscultation: no crackles, no rales, no rhonchi and no wheezes Cardio Jugular venous distension: no JVD Rate: regular rate, not bradycardic and not tachycardic Rhythm: regular rhythm Bruits: no carotid bruits Peripheral pulses: Peripheral pulses 2+ throughout GI Inspection: Yes normal to inspection, No abdominal wall ecchymosis and No visible herniation Palpation (GI): Soft to palpation, nontender, no guarding, not rigid and No hepatosplenomegaly present Auscultation: normoactive bowel sounds General: Yes no CVA tenderness Back/Spine/Pelvis Back: no CVA tenderness and No back tenderness Cervical Spine: cervical ROM normal Thoracic/Lumbar Spine: thoracic and lumbar spine normal to inspection, straight leg raise negative bilaterally, No thoraco-lumbar ROM limited and No lumbar s nestor tenderness Skin Lesions: no lesions Rashes: no rashes Wounds: no wounds Neuro General: oriented to person, oriented to place, patient oriented x3, CN's II-XI intact bilaterally and No confusion Cranial nerves: Yes Equal, round and reactive pupils present and Yes Normal accommodation reflex present Cognition (Neuro): normal cognition Speech: No Abnormal speech present Gait exam (Neuro): Normal gait present Motor exam (neuro): 5/5 motor strength present throughout Extrem Right upper extremity: full ROM; no cyanosis Left upper extremity: full ROM; no cyanosis Right lower extremity: no edema Left lower extremity: no edema Psych Appearance: grossly normal Mental Status: mental status grossly normal Affect: normal affect Attitude: cooperative Thought process: Normal thought process present Office Procedures Flu Questionnaire Does the patient have a severe egg allergy?: No Does the patient have severe life threatening allergies?: No Does the patient have a fever or illness today?: No Has the patient ever had Guillain-[place] Syndrome?: No Has the patient ever had any past reaction to a flu shot?: No Immunizations flu vacc [id number] 6mos up(PF) 60 mcg(15 mcgx4)/0.5 mL IM syringe Performing Provider: Arturo Smith PA-C Performing Location: [facility] Administered by: OUMAR Ascencio on 05/22/23 09:32 Dose Route Admin Location Dispensed Lot Number Expiration Date [employer] Worker 0.5 mL IM Right Deltoid 0.5 mL [id number] 12/02/23 78785-621-97 [employer] VIS Given Date VIS Provided VIS Publication Date 05/22/23 Single Vaccine 21 Eligibility Eligibility Date Funding Source Not [facility] Eligible 05/22/23 Private Assessment and Plan Assessment & Plan (1) Annual physical exam: Code(s): Z00.00 - Encounter for general adult medical examination without abnormal findings (2) JAMIE (generalized anxiety disorder): Code(s): F41.1 - Generalized anxiety disorder Plan: He reports his anxiety has been fairly well controlled though does still have panic attacks from time to time. Does use hydroxyzine on an as-needed basis with very good effect on reducing his anxiety. (3) Asthma: Code(s): J45.909 - Unspecified asthma, uncomplicated Qualifiers: Asthma complication type: uncomplicated Asthma persistence: intermittent Asthma severity: mild Qualified Code(s): J45.20 - Mild intermittent asthma, uncomplicated Plan: He reports his asthma is fairly well controlled though does exacerbate during illnesses. He would like refills on his inhaler. Otherwise denies any recent exacerbations or nighttime awakenings with asthma symptoms. (4) Lumbar spine pain: Code(s): M54.50 - Low back pain, unspecified Plan: Reports having a chronic history of lower back pain worse when standing for long periods of time. He is interested in getting x-rays in doing physical therapy. Orders: Orders Influenza [id number] Immunization Today Z23 - Encounter for immunization XR lumbar spine 2-3V Today M54.50 - Low back pain, unspecified Comprehensive [place]. Panel Fast Today Z13.1 - Encounter for screening for diabetes mellitus Complete Blood Count no Diff Today J45.20 - Mild intermittent asthma, uncomplicated PT Evaluation and Treatment Today M51.9 - Unspecified thoracic, thoracolumbar and lumbosacral intervertebral disc disorder, M54.50 - Low back pain, unspecified Medications: New albuterol sulfate 90 mcg/actuation (Ventolin HFA) 2 puffs inhalation Q4-6H 30 days PRN 8.5 grams 4RF shortness of breath or wheezing J45.20 - Mild intermittent asthma, uncomplicated Coding Level of Care Code Est Pt Prev Care 18-39y(69015) Diagnoses Annual physical exam Z00.00 JAMIE (generalized anxiety disorder) F41.1 Mild intermittent asthma without complication J45.20 Asthma complication type: uncomplicated Asthma persistence: intermittent Asthma severity: mild Lumbar spine pain M54.50
== END 2023-05-22 09:48 | disposition home or self-care (01) ==
PROVIDERS: Visit Provider Physician Assistant
DX: Z23 Encounter for immunization (principal); Z00.00 Encounter for general adult medical examination without abnormal findings; F41.1 Generalized anxiety disorder; J45.20 Mild intermittent asthma, uncomplicated; M54.50 Low back pain, unspecified
CPT/HCPCS: 90471; 90686; 99395

== ENCOUNTER 2025-04-01 16:28 | Emergency (ER) | payer OTHER, SELFPAY ==
[2025-04-01 16:37] VITALS: BP 130/59; PULSE 75; RESP 16; TEMP 36.6; O2SAT 98; BMI 28.0
--- NOTE | 2025-04-01 16:39 | ED_ITS ---
HPI - General Adult General Chief complaint: Animal Bite Stated complaint: bat flew into his head last night taking out trash Time Seen by Provider: 04/01/25 17:14 Source: patient Mode of arrival: ambulatory Limitations: no limitations History of Present Illness ED Provider: Dr. Monson HPI narrative: 29-year-old male presented hospital today for evaluation of encounter with a bat. Patient was taking the trash when a bat flew out of the trash can him in the head. No obvious bat bite. Looking for rabies vaccine. Related Data Previous Rx's ?Medication ?Instructions ?Recorded hydroxyzine HCl 25 mg tablet 25 mg PO ONCE PRN Panic a ttacks 15 01/18/23 days #15 tabs albuterol sulfate 90 mcg/actuation 2 puff inhalation Q 4-6H PRN 05/22/23 aerosol inhaler (Ventolin HFA) shortness of breath or wheezing 30 days #8.5 grams Allergies Allergy/AdvReac Type Severity Reaction Status Date / Time procaine (From Novocain) AdvReac Numbness Verified 04/01/25 16:40 Review of Systems Review of Systems: Pertinent review of systems as mentioned in HPI. All other system otherwise negative. [facility] Past Medical History [facility] Narrative: None Medical History Asthma Family History Family History Father CAD (coronary artery disease) Social History Social History (Updated 05/22/23 @ 09:36 by Arturo Smith PA-C) Housing: Condominium Alcohol intake: current Alcohol intake frequency: a few times a week Alcohol type: beer Patient Tobacco Use Status: Never used Tobacco e-Cigarette/Vaping Use: Former Use Date or number of years quit: 4 year ago Substance Use Type: Marijuana Advance Directives: No Advance Directives Information Provided: No service: No Current occupational status: employed Current occupation: [employer] associate Cognitive needs: No Hearing needs: No Vision needs: No Physical Exam ED Exam Exam: General: Pleasant, no distress, interacting appropriately Head: Normacephalic, atraumatic ENT: oral mucosa moist, neck supple, no tracheal deviation Neurological: Awake and alert, no facial droop noted Skin: Warm and dry, no bite locke appreciate on exam Psychiatric: Appropriate mood and thoughts Vital Signs: Vital Signs - 24 hr 04/01/25 16:37 Temperature 97.9 F Pulse Rate 75 Respiratory Rate 16 Blood Pressure 130/59 L Pulse Oximetry 98 Oxygen Delivery Method Room Air BMI result Body Mass Index 28.0 Course Course Course Narrative: Was taken out of the trash a bat flew out hit him in the head. No bite nic noticed. Looking for rabies shot. Rapid medical screening exam was performed. Patient stable at time of evaluation. Samreen Monson, 04/01/25 1644 Medications Administered Discontinued Medications Generic Name Dose Route Start Last Admin Trade Name Freq PRN Reason Stop Dose Admin Rabies Immune Globulin 1,819.82 unit 04/01/25 16:45 04/01/25 17:24 Rabies Immune Globulin/Pf 1,500 Unit/5 Ml Vial 20 unit/kg (1819.82 unit) 04/01/25 16:46 1,819.82 unit IM Administration ONCE ONE Rabies Vaccine 1 ml 04/01/25 16:45 04/01/25 17:24 Rabies Vaccine (Pcec)/Pf 1 Ml Vial IM 04/01/25 16:46 1 ml .ONCE ONE Administration Medical Decision Making Medical Decision Making [facility] Narrative: This is a 29-year-old male presented hospital today after a bat flew out the trash can and hit him in the head. Rabies vaccine and rabies immunoglobulin will be provided. We will plan to set patient up for infusion clinic follow up. Patient will be discharged Differential Diagnosis Differential Diagnoses: The differential diagnosis associated with the presentation includes Rabies, bat bite Discharge Plan Discharge Clinical Impression: Exposure to bat without known bite Patient Disposition: Home, Self-Care Additional Instructions: Rabies follow up with the [facility]: Upon discharge from the ED today, you will be contacted by the Infusion Center to schedule your follow up Rabies vaccines. You will need a total of 3 more injections. If for some reason you do not receive a call, please call the Infusion Center directly at [phone]. Follow up with your primary care provider after completion of the vaccine to have a titer drawn to ensure the vaccines effectiveness. Prescriptions: No Action albuterol sulfate [Ventolin HFA] 90 mcg/actuation HFA aerosol inhaler 2 puff inhalation Q4-6H PRN (Reason: shortness of breath or wheezing) 30 Days Qty: 8.5 4RF hydroxyzine HCl 25 mg tablet 25 mg PO ONCE PRN (Reason: Panic attacks) 15 Days Qty: 15 3RF Print Language: Indonesian
[2025-04-01] MEDS: Rabies Vaccine (PCEC)/PF 1 ML VIAL IM (17:24)
[2025-04-01 17:41] VITALS: BP 130/59; PULSE 75; RESP 16; TEMP 36.6; O2SAT 98
== END 2025-04-01 17:41 | disposition home or self-care (01) ==
PROVIDERS: Emergency Provider Student in an Organized Health Care Education/Training Program; PCP Internal Medicine
DX: Z20.3 Contact with and (suspected) exposure to rabies (principal); Z29.14 Encounter for prophylactic rabies immune globulin; Z23 Encounter for immunization; Z87.891 Personal history of nicotine dependence
CPT/HCPCS: 90375; 90471; 90472; 90675; 96372; 99282; 99284

== ENCOUNTER 2025-04-04 16:32 | Emergency (ER) | payer OTHER, SELFPAY ==
[2025-04-04 16:39] VITALS: BP 122/56; PULSE 56; RESP 18; TEMP 36; O2SAT 98; BMI 27.8
--- NOTE | 2025-04-04 16:44 | ED.GENADULT ---
HPI - General Adult General Chief complaint: General Medical Stated complaint: rabies vaccine day 3 Time Seen by Provider: 04/04/25 16:50 Source: RN notes reviewed and old records reviewed History of Present Illness ED Provider: Jacquelin Moss PA-C HPI narrative: 29-year-old male with past medical history of asthma, MDD, JAMIE, presenting to ED for rabies vaccination. Patient was evaluated in our ED on 04/01/2025 s/p encounter with a bat, received 1st rabies vaccine and immune globulin, is due for 2nd dose of vaccine today however infusion center as closed. Denies any complaints at present. Patient will follow up if infusion center for remaining doses Related Data Previous Rx's ?Medication ?Instructions ?Recorded hydroxyzine HCl 25 mg tablet 25 mg PO ONCE PRN Panic attacks 15 01/18/23 days #15 tabs albuterol sulfate 90 mcg/actuation 2 puff inhalation Q4-6H PRN 05/22/23 aerosol inhaler (Ventolin HFA) shortness of breath or wheezing 30 days #8.5 grams Allergies Allergy/AdvReac Type Severity Reaction Status Date / Time procaine (From Novocain) AdvReac Numbness Verified 04/04/25 16:45 Review of Systems Review of Systems: Yes all other systems are reviewed and are negative Constitutional: Constitutional: Reports as per [facility] Past Medical History Attestation statement: The following information was validated with the patient. 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 Cognitive needs: No Hearing needs: No Vision needs: No Physical Exam ED Vital Signs: Vital Signs - 24 hr 04/04/25 16:39 04/04/25 17:02 Temperature 96.8 F 96.8 F Pulse Rate 56 56 Respiratory Rate 18 18 Blood Pressure 122/56 L 122/56 L Pulse Oximetry 98 98 Oxygen Delivery Method Room Air Room Air BMI result Body Mass Index 27.8 Const General: cooperative, healthy appearing and no acute distress Orientation/consciousness: patient oriented x3 Limitations: no limitations HENMT Head: Yes normal to inspection and Yes atraumatic Ears: hearing grossly normal bilaterally General nose exam: Normal external nose present Face and sinus: Yes normal facial exam Eyes General: appearance normal, both eyes and all related structures EOM: EOMs intact bilaterally Neck Neck: Yes normal visual inspection and Yes no meningeal signs Resp Effort & Inspection: normal respiratory effort and no respiratory distress Cardio Rate: regular rate Skin Rashes: no rashes Wounds: no wounds Neuro General: patient oriented x3, tone normal and no meningeal signs Cranial nerves: Yes CN's II-XII intact bilaterally Gait exam (Neuro): Normal gait present Extrem General: Yes normal to inspection Medications Administered Discontinued Medications Generic Name Dose Route Start Last Admin Trade Name Freq PRN Reason Stop Dose Admin Rabies Vaccine 1 ml 04/04/25 16:45 04/04/25 16:51 Rabies Vaccine (Pcec)/Pf 1 Ml Vial IM 04/04/25 16:46 1 ml .ONCE ONE Administration Medical Decision Making Medical Decision Making MDM Narrative: 29-year-old male with past medical history of asthma, MDD, JAMIE, presenting to ED for rabies vaccination. Patient was evaluated in our ED on 04/01/2025 s/p encounter with a bat, received 1st rabies vaccine and immune globulin, is due for 2nd dose of vaccine today however infusion center as closed. On exam vital signs stable, NAD, nontoxic appearing, physical exam as noted above. We will give patient's 2nd dose of rabies vaccine. Patient to follow up in infusion center for remaining dosages Please refer to course for remaining clinical decision making, interpretation of labs/imaging results, and discussions with consultants and/or family members. Results discussed with patient including worrisome signs and symptoms and strict return precautions, and when to return to the emergency department. They verbalized understanding and feel safe for discharge at this time. Differential Diagnosis Differential Diagnoses: The differential diagnosis associated with the presentation includes As above External Record Review External record reviewed: Inpatient record, Office record, Outpatient record, Prior outpatient labs, Prior outpatient radiology, Primary care record and Outside ED record Tests considered The following testing was considered but not selected: As above Social Determinants Patient?s care significantly limited by Social Determinants of Health including: Other Social Determinant of Health Discharge Plan Discharge Clinical Impression: Exposure to bat without known bite Patient Disposition: Home, Self-Care Instructions: Rabies (ED) Additional Instructions: Rabies follow up with the [facility]: Upon discharge from the ED today, you will be contacted by the Infusion Center to schedule your follow up Rabies vaccines. You will need a total of 3 more injections. If for some reason you do not receive a call, please call the Infusion Center directly at [phone]. Follow up with your primary care provider after completion of the vaccine to have a titer drawn to ensure the vaccines effectiveness. Prescriptions: No Action albuterol sulfate [Ventolin HFA] 90 mcg/actuation HFA aerosol inhaler 2 puff inhalation Q4-6H PRN (Reason: shortness of breath or wheezing) 30 Days Qty: 8.5 4RF hydroxyzine HCl 25 mg tablet 25 mg PO ONCE PRN (Reason: Panic attacks) 15 Days Qty: 15 3RF Referrals: Trevin Cade MD [Primary Care Provider, Internal Medicine] Interventions: ED Discharge Assessment Last Done: 04/04/25 17:02 Discharge Date/Time: 04/04/25 17:03 Print Language: Ghanaian
[2025-04-04] MEDS: Rabies Vaccine (PCEC)/PF 1 ML VIAL IM (16:51)
[2025-04-04 17:02] VITALS: BP 122/56; PULSE 56; RESP 18; TEMP 36; O2SAT 98
== END 2025-04-04 17:03 | disposition home or self-care (01) ==
PROVIDERS: Emergency Provider Emergency Medicine; PCP Internal Medicine
DX: T14.8XXD Other injury of unspecified body region, subsequent encounter (principal); W64.XXXD Exposure to other animate mechanical forces, subsequent encounter; Z20.3 Contact with and (suspected) exposure to rabies
CPT/HCPCS: 90471; 90675; 99282; 99284

== ENCOUNTER 2025-04-15 09:45 | Outpatient (RCR) | payer OTHER, SELFPAY ==
[2025-04-08 11:17] VITALS: BP 136/53; PULSE 59; RESP 16; TEMP 36.4; O2SAT 99
[2025-04-08] MEDS: Rabies Vaccine (PCEC)/PF 1 ML VIAL IM (11:20)
[2025-04-15 09:41] VITALS: BP 108/56; PULSE 50; RESP 16; TEMP 36.6; O2SAT 98
[2025-04-15] MEDS: Rabies Vaccine (PCEC)/PF 1 ML VIAL IM (09:42)
== END 2025-04-15 09:46 | disposition home or self-care (01) ==
LOC: HO.INF 09:45
PROVIDERS: Visit Provider Physician Assistant Medical
DX: Z20.3 Contact with and (suspected) exposure to rabies (principal); T14.8XXD Other injury of unspecified body region, subsequent encounter; W64.XXXD Exposure to other animate mechanical forces, subsequent encounter
CPT/HCPCS: 90471; 90675

== ENCOUNTER 2025-05-06 13:10 | Outpatient (AMB) | payer OTHER, SELFPAY ==
--- NOTE | 2025-05-06 13:12 | A.OFFPC_ITS ---
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 Accompanied by: Self / Same As Patient Allergies procaine (From Novocain) Adverse Reaction (Verified 05/06/25 13:38) Numbness Medication List - Last Reconciled 05/06/25 by Trevin Cade MD albuterol sulfate 90 mcg/actuation (Ventolin HFA) 2 puffs inhalation Q4-6H PRN 30 days hydroxyzine HCl 25 mg PO ONCE PRN 15 days Tobacco use date assessed: 05/06/25 Dental Screening Dental Screen Date: 05/06/25 Did you have a dental visit in the last 12 months?: Yes Did you have a dental problem in the last 6 months where you did not have access to dental care?: No Was dental information given to patient?: Patient has dentist HPI Ears check up HPI Details - The patient is a 29 year old individua l presenting for evaluation of a chronic ear sensation and intermittent armpit pain. - For several years, the patient has exp erienced a progressively worsening sensation in the ear, described as an intense burning, itching, and a feeling like a bug is moving inside. - The sensation can evolve into a rash-l fox pain over time. - Associated symptoms include a subjecti ve decline in hearing that started with the ear issue and an urge to pop the ears. - There is no history of otorrhea, ear i nfections, or ear procedures such as tube placement. - The patient denies recent sore throat, cough, or cold and denies any fever or ear drainage/discharge - The patient also reports intermittent, random episodes of burning pain in the armpit area that can radiate across the chest. - The pain feels as if it is under the s kin, is often worse in the morning, and is not associated with any rash or prior injury to the area. - The patient recently completed a full course of rabies post-exposure prophylaxis infusions after a bat flew into the patient's face while taking out the trash. COUNT INCLUDES THE [facility] Medical History Asthma Family History Father CAD (coronary artery disease) Social History Housing: Condominium Alcohol intake: current Alcohol intake frequency: a few times a week Alcohol type: beer Patient Tobacco Use Status: Never used Tobacco e-Cigarette/Vaping Use: Former Use Date or number of years quit: 4 year ago Substance Use Type: Marijuana service: No Current occupational status: employed Current occupation: long term associate Cognitive needs: No Hearing needs: No Vision needs: No Questionnaire PHQ-9 Over the last 2 weeks, how often have you been bothered by any of the following problems? 1. Little interest or pleasure in doing things: more than half the days 2. Feeling down, depressed, or hopeless: more than half the days 3. Trouble falling or staying asleep, or sleeping too much: nearly every day 4. Feeling tired or having little energy: nearly every day 5. Poor appetite or overeating: not at all 6. Feeling bad about yourself - or that you are a failure or have let yourself or your family down: more than half the days 7. Trouble concentrating on things, such as reading the newspaper or watching television: more than half the days 8. Moving or speaking so slowly that other people could have noticed. Or the opposite - being so fidgety or restless that you have been moving around a lot more than usual: more than half the days 9. Thoughts that you would be better off or of hurting yourself in some way: several days Total score: 17 Depression Screening Interpretation: Positive Depression Screening Follow-up: Follow-up Visit Requested Depression Screening Done: Yes 68298 - PHQ-9 Billing: Yes Source: Developed by Drs. aJrret Lorenzo, Ebony Steen, Joss Smith and colleagues, with an educational divina from [employer]. Thrive Questionnaire Date Thrive assessed: 05/06/25 I am a: Patient What is your living situation today?: I have a steady place to live Within the past 12 months, did the food you bought not last and you didn't have the money to get more?: Never true Within the past 12 months, did you worry whether your food would run out before you got money to buy more?: Never true Do you have trouble paying for medicines?: No Do you have trouble getting transportation to medical appointments?: No Do you have trouble paying your heating and electricity bill?: No Do you have trouble taking care of your child, family member or friend?: No Do you have trouble with day-to-day activities such as bathing, preparing meals, shopping, managing finances, etc.?: No Are you currently unemployed and looking for a job?: No Are you interested in more education?: No Please select the resources that you would like help with: None Currently or been in a relationship where the following occur: No concerns rep orted THRIVE Score: 0 AUDIT C Alcohol Use Questionnaire (AUDIT-C) 1. How often do you have a drink containing alcohol?: Never 3. How often do you have six or more drinks on one occasion?: Never Total Score: 0 Score Reviewed/Action Taken: Yes JAMIE-7 AMB Questionnaire JAMIE-7 Date JAMIE - 7 assessed: 05/06/25 Feeling nervous, anxious, or on edge: 2 = More than half the days Not being able to stop or control worryin = More than half the days Worrying too much about different things: 2 = More than half the days Trouble relaxin = More than half the days Being so restless that it is hard to sit still: 2 = More than half the days Becoming easily annoyed or irritable: 3 = Nearly every day Feeling afraid as if something awful might happen: 2 = More than half the days Total JAMIE-7 score (0-4 normal; 5-9 mild; 10-14 moderate; 15-21 severe): 15 Source: Developed by Drs. Jarret Lorenzo, Ebony Steen, Joss Smith and colleagues, with an educational divina from [employer]. Review of Systems Const All systems reviewed & are unremarkable except as noted in HPI and below Denies chills, Denies fatigue, Denies fever(s) and Denies headache(s) ENT Denies dysphagia, Denies dizziness, Denies ear discharge, Reports otalgia (see HPI for details), Denies headache(s), Reports hearing loss (see HPI), Denies neck pain, Denies odynophagia, Denies tinnitus and Denies sore throat Card Denies chest pain, Denies palpitations and Denies dyspnea Resp Denies chest congestion, Denies cough and Denies dyspnea GI Denies abdominal pain, Denies constipation, Denies dysphagia, Denies heartburn, Denies diarrhea, Denies nausea, Denies odynophagia and Denies vomiting Denies difficulty urinating, Denies dysuria, Denies nocturia and Denies urinary frequency Musc Denies back pain and Denies neck pain Skin/Breast Denies rash Neuro Denies dizziness and Denies headache(s) Endo Denies fatigue and Denies palpitations Physical exam (Primary Care) Vital Signs: Last Vital Signs Pulse 58 05/06/25 13:13 BP 110/70 05/06/25 13:13 Pulse Ox 98 05/06/25 13:13 Oxygen Delivery Method Room Air 05/06/25 13:13 BMI result Body Mass Index 27.1 Tobacco/Smoking Status: Tobacco use Status Tobacco use date assessed 05/06/25 05/06/25 13:19 Patient Tobacco Use Status Never used Tobacco 05/06/25 13:19 e-Cigarette/Vaping Use Former Use 05/06/25 13:19 PHQ-9: PHQ-9 Score PHQ-9: Total score 17 05/06/25 13:45 Depression Screening Interpretation: Positive Depression Screening Follow-up: Follow-up Visit Requested Thrive Assessment: Date of Thrive Assessment Date Thrive assessed 05/06/25 05/06/25 13:19 Currently or been in a relationship where the following occur: No concerns reported Const General: no acute distress and alert HENMT Ears: TM's normal bilaterally and EAC's normal Throat: Yes posterior oropharynx normal and Yes tonsils normal (no TP congestion) Neck Neck: Yes supple and No lymphadenopathy Thyroid: Thyroid normal Resp Auscultation: clear to auscultation bilaterally, no rales and no wheezes Cardio Rate: regular rate Rhythm: regular rhythm Heart sounds: no murmurs GI Palpation (GI): Soft to palpation and nontender Auscultation: normal bowel sounds General: Yes no CVA tenderness Back/Spine/Pelvis Back: no CVA tenderness Thoracic/Lumbar Spine: No lumbar spinal tenderness Skin Lesions: no lesions Rashes: no rashes Extrem General: Yes no clubbing, cyanosis or edema Coding Level of Care Code Est Pt Level 3 (88204) Diagnoses Ear symptom R68.89 Decreased hearing, unspecified laterality H91.90 Laterality: unspecified laterality Additional Codes PHQ-9 - 61884 - PHQ-9 Billing: Yes ([id number]) Assessment & Plan Assessment & Plan (1) Ear symptom: Code(s): R68.89 - Other general symptoms and signs Category: Medical (2) Hearing decreased: Code(s): H91.90 - Unspecified hearing loss, unspecified ear Category: Medical Qualifiers: Laterality: unspecified laterality Qualified Code(s): H91.90 - Unspecified hearing loss, unspecified ear Plan Patient is advised / reassured that his ears are completely normal on exam today, including his auditory canals and external ears With regards to the perceived decline in his hearing lately, will refer him for a hearing evaluation He is advised that if his hearing evaluation comes out normal and his symptoms persist, he can discuss further with his PCP about potentially referring him for an ENT evaluation if appropriate To return in 6 months for his annual physical examination with his PCP Orders: Referrals Speech and Hearing Referral H91.90 - Unspecified hearing loss, unspecified ear
[2025-05-06 13:13] VITALS: BP 110/70; PULSE 58; O2SAT 98; BMI 27.1
== END 2025-05-06 13:47 | disposition home or self-care (01) ==
LOC: HO.HMCH 13:11
PROVIDERS: PCP Internal Medicine; Visit Provider Internal Medicine
DX: R68.89 Other general symptoms and signs (principal); H91.90 Unspecified hearing loss, unspecified ear

== ENCOUNTER → 2025-05-06 13:10 | Outpatient (BNVA) | payer OTHER, SELFPAY | PROVIDERS: PCP Internal Medicine; Visit Provider Internal Medicine | DX: R68.89 Other general symptoms and signs (principal); H91.90 Unspecified hearing loss, unspecified ear; Z13.31 Encounter for screening for depression | CPT/HCPCS: 96127 ==